=== PATIENT | female | born 1995 | race American Indian/Alaskan Native ===

== ENCOUNTER 2017-06-10 01:07 | Emergency (ER) | payer MEDICAID ==
[2017-06-10 01:09] VITALS: BMI 19.8
[2017-06-10 01:23] VITALS: BP 124/83; PULSE 72; RESP 18; TEMP 98.4; O2SAT 100
--- NOTE | 2017-06-10 01:52 | ED PDOC ---
Arrival/HPI - General Chief Complaint: Shortness Of Breath Time Seen by Provider: 06/10/17 01:34 Historian: Patient - History of Present Illness Narrative History of Present Illness (Text): 06/10/17 01:49 Ti Calhoun is a 22 year old female, with a history of asthma, presents to the emergency department complaining of throat discomfort, and cough for past 4 days. States that she used inhaler treatments at home for minimal symptomatic relief. Denies any shortness of breath. Denies fever, chills, headache, dizziness, nausea, vomiting, urinary symptoms, or any other complaints at this time. Time/Duration: Other (4 days ) Symptom Onset: Gradual Severity Level: Mild Activities at Onset: Light Past Medical History - Provider Review Nursing Documentation Reviewed: Yes - Cardiac Hx Cardiac Disorders: No - Pulmonary Hx Asthma: Yes - Neurological Hx Neurological Disorder: No - HEENT Hx HEENT Disorder: No - Renal Hx Renal Disorder: No - Endocrine/Metabolic Hx Endocrine Disorders: No - Hematological/Oncological Hx Blood Disorders: No - Integumentary Hx Dermatological Disorder: No - Musculoskeletal/Rheumatological Hx Musculoskeletal Disorders: No - Gastrointestinal Hx Gastrointestinal Disorders: No - Genitourinary/Gynecological Hx Genitourinary Disorders: No - Psychiatric Hx Anxiety: Yes Hx Depression: Yes Hx Emotional Abuse: No Hx Physical Abuse: No Hx Substance Use: No - Suicidal Assessment Feels Threatened In Home Enviroment: No Family/Social History - Physician Review Nursing Documentation Reviewed: Yes Family/Social History: No Known Family HX Smoking Status: Light Smoker < 10 Cigarettes Daily Hx Alcohol Use: No Hx Substance Use: No Hx Substance Use Treatment: No Allergies/Home Meds Allergies/Adverse Reactions: Allergies No Known Allergies Allergy (Verified 06/10/17 01:24) Review of Systems - Physician Review All systems were reviewed & negative as marked: Yes - Review of Systems Constitutional: Normal. absent: Fatigue, Fevers ENT: Sore Throat Respiratory: SOB, Cough. absent: Sputum Cardiovascular: absent: Chest Pain, Palpitations Gastrointestinal: Normal. absent: Abdominal Pain, Diarrhea, Nausea, Vomiting Neurological: Normal. absent: Headache, Dizziness Physical Exam Vital Signs Reviewed: Yes Vital Signs Temp Pulse Resp BP Pulse Ox 06/10/17 01:21 98.4 F 72 18 124/83 100 Temperature: Afebrile Blood Pressure: Normal Pulse: Regular Respiratory Rate: Normal Appearance: Positive for: Well-Appearing, Non-Toxic, Comfortable Pain Distress: None Mental Status: Positive for: Alert and Oriented X 3 - Systems Exam Head: Present: Atraumatic, Normocephalic Pupils: Present: PERRL Conjunctiva: Present: Normal Mouth: Present: Moist Mucous Membranes Pharnyx: Present: ERYTHEMA. No: EXUDATE, TONSILS ENLARGED Respiratory/Chest: Present: Clear to Auscultation, Good Air Exchange. No: Respiratory Distress, Accessory Muscle Use, Wheezes Cardiovascular: Present: Regular Rate and Rhythm, Normal S1, S2. No: Murmurs Abdomen: Present: Normal Bowel Sounds. No: Tenderness, Distention, Peritoneal Signs Upper Extremity: Present: Normal Inspection. No: Cyanosis, Edema Lower Extremity: Present: Normal Inspection. No: Edema Neurological: Present: GCS=15, CN II-XII Intact, Speech Normal, Motor Func Grossly Intact, Normal Sensory Function Skin: Present: Warm, Dry, Normal Color. No: Rashes Psychiatric: Present: Alert, Oriented x 3, Normal Insight, Normal Concentration Medical Decision Making ED Course and Treatment: 06/10/17 01:52 Impression: A 22 year old female who presents to the emergency department for throat discomfort and cough for past 4 days. Plan: -- Amoxicillin -- Prednisone -- Reassess and disposition Progress Notes: 06/10/17 02:13 On re-evaluation, patient feels better and is in no acute distress. I have discussed the results and plan with the patient, who expresses understanding. Patient in agreement with plan to be discharged home. Patient is stable for discharge. Patient was instructed to follow up with physician or return if symptoms worsen or new concerning symptoms arise. - Medication Orders Current Medication Orders: Amoxicillin (Amoxil 500 Mg Cap) 500 mg PO STAT STA PRN Reason: Protocol Stop: 06/10/17 01:56 Prednisone (Prednisone Tab) 60 mg PO ONCE STA Stop: 06/10/17 01:56 - Scribe Statement The provider has reviewed the documentation as recorded by the Karen Rasheed Provider Attestation: Provider Scribe Attestation: All medical record entries made by the Scribbreanna were at my direction and personally dictated by me. I have reviewed the chart and agree that the record accurately reflects my personal performance of the history, physical exam, medical decision making, and the department course for this patient. I have also personally directed, reviewed, and agree with the discharge instructions and disposition. Disposition/Present on Arrival - Present on Arrival History of DVT/PE: No History of Uncontrolled Diabetes: No Urinary Catheter: No History of Decub. Ulcer: No History Surgical Site Infection Following: None - Disposition Diagnosis: Bronchitis, acute Disposition: HOME/ ROUTINE Patient Problems: Current Active Problems Problem Status Onset Bronchitis, acute Acute Discharge Instructions (ExitCare): Acute Bronchitis (ED) Prescriptions: Amoxicillin 875 mg PO BID #20 tab predniSONE [predniSONE Tab] 20 mg PO TID #15 tab Forms: [facility] ([place]ese)
== END 2017-06-10 03:10 | disposition home or self-care (01) ==
LOC: ED 01:07
DX: J20.9 Acute bronchitis, unspecified (principal); Z72.0 Tobacco use

== ENCOUNTER 2017-06-10 05:05 | Emergency (ER) | payer MEDICAID ==
[2017-06-10 05:05] VITALS: BMI 19.8
== END 2017-06-10 05:42 | disposition left against medical advice (07) ==
LOC: ED 05:05
DX: Z02.89 Encounter for other administrative examinations (principal); J45.909 Unspecified asthma, uncomplicated